=== PATIENT | male | born 1985 | race Caucasian/White ===

== ENCOUNTER 2023-07-09 03:21 | Emergency (ER) | payer OTHER ==
[2023-07-09 03:28] VITALS: BP 124/84; TEMP 98.1; BMI 21.2
[2023-07-09 03:51] LABS: BASO % 0.6 % (0-2.0); EOS % 0.4 % (0-4.5); HEMATOCRIT 39.2 % (35.4-49); HEMOGLOBIN 13.2 GM/dL (11.7-16.9); LYMPH % 19.4 % (8-40); MCH 30.5 pg (25.7-33.7); MCHC 33.6 g/dl (32.0-35.9); MEAN CELL VOLUME 90.6 fl (80-96); MEAN PLT VOLUME 7.3 fl (7.5-11.1); MONO % 6.7 % (3.8-10.2); NEUT % 72.9 % (42.8-82.8); PLATELET COUNT 272 10^3/uL (134-434); RBC 4.33 M/mm3 (4.00-5.60); RDW 13.5 % (11.9-15.9); WHITE BLOOD COUNT 15.2 K/mm3 (4.0-10.0)
[2023-07-09] MEDS ORDERED: ACETAMINOPHEN INJECTION 100 ML IVPB ONE (04:04)
[2023-07-09] MEDS ORDERED: DIPHTH,PERTUSS(ACELL),TET 0.5 ML DISP.SYRIN IM ONE (04:04)
[2023-07-09] MEDS: DIPHTH,PERTUSS(ACELL),TET 0.5 ML DISP.SYRIN IM ONE (04:14)
[2023-07-09 04:15] LABS: INR 1.14 (0.83-1.09); POTASSIUM 3.8 mmol/L (3.5-5.1); PROTHROMBIN TIME (PATIENT) 12.8 SEC (9.7-13.0)
[2023-07-09] MEDS: ACETAMINOPHEN 1000 MG/100 ML BAG IVPB ONE (04:15)
[2023-07-09 04:17] LABS: CALCIUM 9.6 mg/dL (8.5-10.1)
[2023-07-09 04:18] LABS: ACTIVATED PTT 32.4 SECONDS (25.2-36.5); ALBUMIN 4.2 g/dl (3.4-5.0); BLOOD UREA NITROGEN 15.5 mg/dL (7-18)
[2023-07-09 04:21] LABS: CREATININE 1.3 mg/dL (0.55-1.3)
[2023-07-09 04:23] LABS: BILIRUBIN,TOTAL 0.3 mg/dL (0.2-1)
[2023-07-09] MEDS: SODIUM CHLORIDE 0.9% 500 ML INFUS.BAG IV ONE (05:47)
[2023-07-09] MEDS: CEFAZOLIN 1 GM in DEXTROSE 5%-WATER - 50 ML IVPB ONE (06:07)
[2023-07-09] MEDS ORDERED: ceFAZolin SODIUM 1 GM VIAL ONE ×2 (06:11→06:12)
[2023-07-09 06:21] VITALS: PULSE 82; RESP 12
== END 2023-07-09 06:25 | disposition short-term general hospital (02) ==
LOC: JER 03:21
PROC: 3E03329 Introduction of Other Anti-infective into Peripheral Vein, Percutaneous Approach (ICD-10-PCS; principal; 2023-07-09)
PROC: 3E030GC Introduction of Other Therapeutic Substance into Peripheral Vein, Open Approach (ICD-10-PCS; 2023-07-09)
PROC: 3E0234Z Introduction of Serum, Toxoid and Vaccine into Muscle, Percutaneous Approach (ICD-10-PCS; 2023-07-09)
DX: S11.91XA Laceration without foreign body of unspecified part of neck, initial encounter (principal); Y04.0XXA Assault by unarmed brawl or fight, initial encounter
CPT/HCPCS: 36415; 70498-TC; 80053; 85025; 85610; 85730; 86850; 86900; 86901; 90471; 90715; 96365; 96375; 99285-25; J0131; Q9967